=== PATIENT | female | born 1980 | race Caucasian/White ===

== ENCOUNTER 2023-12-11 07:19 | Day surgery (SDC) | payer OTHER, SELFPAY ==
[2023-12-11] VITALS (7 sets, daily range): BP systolic 85–124; BP diastolic 56–91; PULSE 61–81; RESP 16; TEMP 36.2–36.5; O2SAT 100; BMI 44.4
--- NOTE | 2023-12-11 | COLBX_PTH ---
PATIENT: TAMIKO HUYNH LOC: EN U#:[id number] AGE/SX: 43/F ROOM: RE12/11/[address]: Dr. Selena Cool MD : 1980 BED: DIS: 12/11/2023 SPEC #: [id number] RECD: 12/11/23 12:47 STATUS: GERTRUDE TONE #: [id number] LANDON: 12/11/23 00:[address]: Selena Cool DEPT: SURGICAL PATHOLOGY RECD BY: Polo Marshall ENTERED: 12/11/23 12:47 SP TYPE: COLON BX OTHR DR: MARISA Huffman Tissues: A - Descending colon B - Rectum, NOS Procedures: Surgery Specimen Level IV HEADER OPERATION: Colonoscopy, biopsy PRE-OP DIAGNOSIS: Family history of colon cancer TISSUE SUBMITTED: A- Descending colon polyp biopsy, B- Rectum polyp biopsy MICROSCOPIC DIAGNOSIS A. Descending colon polyp, biopsy: Fragments of tubular adenoma. B. Rectum polyp, biopsy: Hyperplastic polyp. / 12/12/2023 MICROSCOPIC DESCRIPTION Slides are reviewed. GROSS DESCRIPTION A. Received in fixative is one container labeled with the patient's name and designated Descending colon polyp biopsy. The specimen consists of multiple irregular fragments of light augustin soft tissue that in aggregate measure 0.6 x 0.3 x 0.1 cm. The specimen is totally submitted in one cassette. B. Received in fixative is one container labeled with the patient's name and designated Rectum polyp biopsy. The specimen consists of one irregular fragment of light augustin soft tissue that measures 0.3 x 0.3 x 0.1 cm. The specimen is totally submitted in one cassette. / 12/11/2023 TC:5 CPT:68584r5
--- NOTE | 2023-12-11 07:48 | PCM.PRE.AN2 ---
ASA Classification* ASA Classification ASA Classification: 3 Assessment & Plan Anesthesia* Anesthesia Assessment Anesthesia Assessment: Discussed sedation and/or anesthesia options, risks, benefits, and alternatives with patient/parents/legal guardian/POA. Questions invited. The patient/parents/legal guardian/POA seems to understand and agrees to proceed with anesthesia plan. Reviewed the physical assessment, medical history, allergy history and patient home medications list prior to surgery/procedure/anesthetic and documented any changes. Performed airway and anesthesia risk assessments. 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 When Was Last Pacemaker Check QUESTION #4 FULL TEXT: You/Your Family Experience fever (hyperthermia) with Anesthesia Last Oral Intake Last Oral intake: Last Oral Intake NPO since 00:00 12/11/23 07:43 Meds taken in AM with sips of water? Meds patient instructed to take am of surgery PONV PONV - ibm mainframe developer: PONV - ibm mainframe developer Female Yes 12/07/23 16:55 HX of Motion Sickness No 12/07/23 16:55 HX of N/V After Surgery No 12/07/23 16:55 Non-Smoker Yes 12/07/23 16:55 Duration of Surgery greater No 12/07/23 16:55 than 60 minutes Number of Risk Factors 2 12/07/23 16:55 PONV Score Moderate Risk 12/07/23 16:55 Height & Weight Height & Weight: Anesthesia: Height & Weight Height 5 ft 4 in 12/11/23 07:43 Weight: 117.48 kg 12/11/23 07:43 Body Mass Index (BMI) 44.4 12/11/23 07:43 Respiratory Assessment Respiratory Assessment - ibm mainframe developer: Respiratory Tract Infection Hx - ibm mainframe developer Hx Respiratory Tract Infection No 12/07/23 16:55 STOP Sleep Apnea STOP Sleep Apnea - ibm mainframe developer: STOP Sleep Apnea - ibm mainframe developer Hx Hypertension No 12/07/23 16:55 Hx Sleep Apnea No 12/07/23 16:55 CPAP BIPAP Do you snore loudly (louder No 12/07/23 16:55 than talking or can be heard Do you often feel tired/ No 12/07/23 16:55 fatigued/ sleepy during daytime? Has anyone observed you stop No 12/07/23 16:55 breathing during sleep? STOP Results Negative 12/07/23 16:55 QUESTION #5 FULL TEXT : Do you snore loudly (louder than talking or can be heard through closed doors)? 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 Specify any problems Hx of Preganancy in last 3 No 12/07/23 16:55 Months Nurse Filling Out Transfusion [email or web address] 12/07/23 16:55 & Questions: Date: 12/07/23 12/07/23 16:55 Time: 16:58 12/07/23 16:55 Patient unable to answer at this time (ie. confused, unrespo /Reproduction History /Reproductive History - ibm mainframe developer: /Reproductive Hx- ibm mainframe developer Hx Now No 12/07/23 16:55 Gestational Age (in weeks): EDC: Hx Hx Para Hx Section SAB No 12/07/23 16:55 Active Medications Active Medications: Current Medications Generic Name Dose Route Start Last Admin Trade Name Freq PRN Reason Stop Dose Admin Lactated Ringer's 1,000 mls @ 15 mls/hr 12/11/23 07:30 IV .Q48H VIRGILIO PFSH Medical History Wears glasses Depression Anxiety Non-smoker Family history of colon cancer Home Medications ?Medication ?Instructions ?Recorded ?Last Taken ?Type meloxicam 15 mg tablet 15 mg PO QDAY 10/24/23 Unknown History sertraline 50 mg tablet 50 mg PO QDAY 10/24/23 Unknown History medroxyprogesterone 10 mg tablet 10 mg PO QHS 12/07/23 Unknown History Allergy/AdvReac Type Severity Reaction Status Date / Time ondansetron (From Zofran) AdvReac Severe Vomiting Verified 12/11/23 07:42 Family History Mother Colon cancer, Onset Age: 50 Surgical History Hx of adenoidectomy Social History Smoking Status: Never smoker Review of Systems (Anesthesia) ROS Narrative System reviewed and no additional complaints, except as documented.
[2023-12-11] MEDS: Lactated Ringers 1,000 ML 15 ML IV (07:53)
--- NOTE | 2023-12-11 07:54 | H&P.OPEN ---
HPI - General General Date of Service: 12/11/23 HPI Narrative TAMIKO HUYNH, is a 43 F who presents for screening colonoscopy due to family history of colon cancer mom. Patient denies any changes since last office visit. office visit 10/24/23 HPI HPI: 43-year-old female presents due to family history of colon cancer in her mom diagnosed in her early 50s. Patient has never had previous colonoscopy. Patient states she has bowel movements every other day denies any blood. Patient does have known hemorrhoids but denies any issues with them. Patient denies any nausea/vomiting/reflux or chronic abdominal pain. FOR[facility]LY [facility] Medical History Wears glasses Depression Anxiety Non-smoker Family history of colon cancer Home Medications ?Medication ?Instructions ?Recorded ?Last Taken ?Type meloxicam 15 mg tablet 15 mg PO QDAY 10/24/23 Unknown History sertraline 50 mg tablet 50 mg PO QDAY 10/24/23 Unknown History medroxyprogesterone 10 mg tablet 10 mg PO QHS 12/07/23 Unknown History Allergy/AdvReac Type Severity Reaction Status Date / Time ondansetron (From Zofran) AdvReac Severe Vomiting Verified 12/11/23 07:42 Family History Mother Colon cancer, Onset Age: 50 Surgical History Hx of adenoidectomy Social History Smoking Status: Never smoker Past Medical/Surgical History Planned Operation Planned Operative Procedure(s): COLONOSCOPY Previous Hospitalizations/Surgeries HX Hospitalizations: No Any Problems With Anesthesia: No You/Your Family Experience Fever (Hyperthermia) With Anes: No Cholinesterase deficiency: No Cardiovascular Hx Hypertension: No Respiratory Hx Sleep Apnea: No Hx Respiratory Tract Infection/Cold (presently): No Do You Snore Loudly (louder than talking or can be heard): No Do You Often Feel Tired/ Fatigued/ Sleepy Dring Daytime?: No Has Anyone Observed You Stop Breathing During Sleep?: No Result (for STOP score): Negative Smoking Status: Never smoker Neurological Does patient have nerve stimulator: No Reproduction : No Miscellaneous Recent Exposure to Contagious Disease: No Allergies ondansetron (From Zofran) Adverse Reaction (Severe, Verified 12/11/23 07:42) Vomiting Vital Signs Vital Signs Vital Signs: 12/11/23 07:43 12/11/23 07:43 12/11/23 07:48 Temperature 97.4 F L 97.4 F L Temperature Source Temporal Pulse Rate 64 64 Respiratory Rate 16 16 Respiratory Pattern Normal Blood Pressure 124/68 H 124/68 H Blood Pressure Mean 86 Blood Pressure Source Monitor Blood Pressure Position Sitting Blood Pressure Location Right Arm Pulse Ox 100 100 Oxygen Delivery Method Room Air Weight Weight: 259 lb Body Mass Index (BMI) 44.4 Physical Exam Const alert, oriented x3 and no apparent distress HEENT normocephalic and head/scalp atraumatic Resp normal respiratory effort Cardio regular rate GI soft to palpation and non-tender; Negative for non-distended Palpation: Negative for guarding Extremity no clubbing, cyanosis or edema Skin no rashes or lesions noted Neuro CN's II-XII intact bilaterally Psych mental status grossly normal Assessment & Plan Assessment/Plan (1) Family history of colon cancer: Surgery Risks - Colonoscopy I discussed with the patient the risks of the procedure: Yes Risks Include but are not Limited To: Risks include but are not limited to: Bleeding, perforation requiring further surgery, inability to complete colonoscopy requiring barium enema.
--- NOTE | 2023-12-11 08:59 | OP.COLON_ITS ---
Patient Name: Ugo Saxena Procedure Date: 12/11/2023 8:32 AM Date of : 1980 Age: 43 Procedure: Colonoscopy Indications: Screening in patient at increased risk: Colorectal cancer in mother before age 60 Providers: Selena Cool MD Medicines: Monitored Anesthesia Care Patient Profile: This is a 43 year old female. Last Colonoscopy: none. The patient's first colonoscopy is today. Complications: No immediate complications. Procedure: Pre-Anesthesia Assessment: - Prior to the procedure, a History and Physical was performed, and patient medications and allergies were reviewed. The patient's tolerance of previous anesthesia was also reviewed. The risks and benefits of the procedure and the sedation options and risks were discussed with the patient. All questions were answered, and informed consent was obtained. Prior Anticoagulants: The patient has taken no anticoagulant or antiplatelet agents. ASA Grade Assessment: Per anesthesia. After reviewing the risks and benefits, the patient was deemed in satisfactory condition to undergo the procedure. After I obtained informed consent, the scope was passed under direct vision. Throughout the procedure, the patient's blood pressure, pulse, and oxygen saturations were monitored continuously. The Colonoscope was introduced through the anus and advanced to the terminal ileum. The colonoscopy was performed without difficulty. The patient tolerated the procedure well. The quality of the bowel preparation was good. Scope In: 8:38:55 AM Scope Withdrawal Time 0 hours 9 minutes 12 seconds Scope Out: 8:53:26 AM Total Procedure Duration Time 0 hours 14 minutes 31 seconds Findings: Hemorrhoids were found on perianal exam. Non-bleeding internal hemorrhoids were found. The hemorrhoids were Grade I (internal hemorrhoids that do not prolapse). Two sessile polyps were found in the rectum and descending colon. The polyps were less than 5 mm in size. These polyps were removed with a cold biopsy forceps. Resection and retrieval were complete. The terminal ileum appeared normal. The exam was otherwise without abnormality. Impression: - Hemorrhoids found on perianal exam. - Non-bleeding internal hemorrhoids. - Two less than 5 mm polyps in the rectum and in the descending colon, removed with a cold biopsy forceps. Resected and retrieved. - The examined portion of the ileum was normal. - The examination was otherwise normal. Recommendation: - Discharge patient to home. - Resume previous diet. - Continue present medications. - Await pathology results. - Repeat colonoscopy in 3 years for surveillance based on pathology results. Procedure Code(s): --- Professional --- 87241, PT, Colonoscopy, flexible; with biopsy, single or multiple Diagnosis Code(s): --- Professional --- Z80.0, Family history of malignant neoplasm of digestive organs K64.0, First degree hemorrhoids D12.8, Benign neoplasm of rectum D12.4, Benign neoplasm of descending colon CPT copyright 2021 [employer]. All rights reserved. The codes documented in this report are preliminary and upon freight car builder review may be revised to meet current compliance requirements. MD Selena Jonhson MD 12/11/2023 8:59:44 AM This report has been signed electronically. Number of Addenda: 0 Note Initiated On: 12/11/2023 8:32 AM
--- NOTE | 2023-12-11 09:00 | OP.CCLET_ITS ---
12/11/2023 Mane Huffman Re : Colonoscopy procedure for Ugo Hernandez This procedure was performed on Monday, December 11, 2023. My impressions and recommendations are as follows: Impressions : - Hemorrhoids found on perianal exam. - Non-bleeding internal hemorrhoids. - Two less than 5 mm polyps in the rectum and in the descending colon, removed with a cold biopsy forceps. Resected and retrieved. - The examined portion of the ileum was normal. - The examination was otherwise normal. Recommendations : - Discharge patient to home. - Resume previous diet. - Continue present medications. - Await pathology results. - Repeat colonoscopy in 3 years for surveillance based on pathology results. My findings are described in the full procedure note, which is enclosed. If I can be of further assistance, please feel free to contact me at Doctor phone number(s): , Work: . Sincerely, MD Selena Johnson MD 12/11/2023 8:59:44 AM This report has been signed electronically.
--- NOTE | 2023-12-11 09:04 | PCM.POST.ANE ---
Anesthesia: Postop Eval I Current Vital Signs Temperature: 97.7 F Pulse Rate: 62 Blood Pressure: 113/56 Respiratory Rate: 16 Pulse Ox: 100 Oxygen Delivery Method: Room Air Assessment Airway patent: Yes Spontaneous unlabored respirations: Yes Mental status: Awake and Calm nausea: No Vomiting: No Anesthesia Complication: No Fluid Hydration Crystalloid volume administer (ml): 400 Total IV fluid infused: 400 Progress Note Anesthesia document: Postop Eval 1 completed: Yes
--- NOTE | 2023-12-11 09:10 | PCM.POSTANE2 ---
Anesthesia Postop Eval I Sum Postop Eval Completion status Anesthesia document: Postop Eval 1 completed: Yes Anesthesia Postop Eval I Summary Anesthesia Postop Eval I Summary: Anesthesia Postop Eval I: Assessment Summary Airway patent Yes 12/11/23 09:05 [email or web address] Spontaneous unlabored Yes 12/11/23 09:05 [email or web address] respirations Mental status Awake,Calm 12/11/23 09:05 [email or web address] nausea No 12/11/23 09:05 [email or web address] Vomiting No 12/11/23 09:05 [email or web address] Anesthesia Postop Eval I: Fluid Summary Crystalloid volume administer 400 12/11/23 09:05 [email or web address] (ml) Colloids volume administered ( ml) Blood Product volume administered (ml) Total IV fluid infused 400 12/11/23 09:05 [email or web address] Anesthesia Postop Eval I: Summary Notes Anesthesia Complication No 12/11/23 09:05 [email or web address] Anesthesia Complication Comment: Post-operative progress note Anesthesia: Postop Eval II Evaluation Mental status: Awake Pain Level: 0 nausea: No Vomiting: No
== END 2023-12-11 09:26 | disposition home or self-care (01) ==
LOC: EN 07:23 → AC 07:25
PROVIDERS: Visit Provider Surgery
PROC: 0DJD8ZZ Inspection of Lower Intestinal Tract, Via Natural or Artificial Opening Endoscopic (ICD-10-PCS; CPT 45378; principal; 2023-12-11 08:25)
DX: Z12.11 Encounter for screening for malignant neoplasm of colon (principal); D12.4 Benign neoplasm of descending colon; D12.8 Benign neoplasm of rectum; K64.0 First degree hemorrhoids; Z80.0 Family history of malignant neoplasm of digestive organs
CPT/HCPCS: 45380; 88305; J7120; J2405

== ENCOUNTER → 2025-01-08 | Outpatient (CLI) | payer OTHER, SELFPAY ==
--- NOTE | 2025-01-08 15:04 | NEURO ---
NCS and/or EMG Patient Report Ordering Doctor: Carine Hernandez DATE OF SERVICE: 01/08/25 Ugo presents complaints of numbness and tingling in both hands. Electrodiagnostic findings: Right median motor nerve demonstrates prolonged distal latency with normal amplitude and conduction velocity. Left median motor nerve demonstrates normal distal latency amplitude and conduction velocity. Normal ulnar motor response bilaterally. Normal ulnar F?wave and left median F?wave. Prolonged right median F?wave. Prolonged median sensory latency at the wrist bilaterally with reduced conduction velocity on the right side. Needle EMG testing was performed upper limbs. All muscles tested showed no evidence of denervation with normal motor unit action potentials. Electrodiagnostic impression: This an abnormal study in the upper limbs. 1. Electrodiagnostic findings suggestive of bilateral median mononeuropathy. This consistent with mild left carpal tunnel syndrome and a moderate right carpal tunnel syndrome. Multi Select Codes Neurology Neurology Interp Codes: 77366-77 Musc test done w/n test comp (interp) (2) and 11722-80 Nrv cndj test 9-10 studies (interp)
== END | disposition home or self-care (01) ==
LOC: PSN 13:24
DX: G56.00 Carpal tunnel syndrome, unspecified upper limb (principal)
CPT/HCPCS: 95886; 95911